=== PATIENT | male | born 1995 | race Caucasian/White ===

== ENCOUNTER 2018-05-30 15:43 | Outpatient (CLI) | payer OTHER ==
--- NOTE | 2018-05-31 08:50 | MRI ---
MRI OF THE LEFT HINDFOOT WITHOUT CONTRAST: Date: 05/30/18 INDICATION: Left ankle injury in January 2018 with persistent left ankle pain. COMPARISON: Left ankle radiograph dated 04/05/18. FINDINGS: The ATFL, PTFL, calcaneofibular, and syndesmotic ligaments are intact. The spring ligament appears in tact. No osteochondral lesion is seen involving the talar dome or tibial plafond. There is some mild nonspecific subchondral edema involving the medial malleolus. Sinus tarsi has a normal signal intensi ty. The Achilles tendon is normal appearing. There is some mild flattening and intermediate to high T 2 signal involving the peroneus brevis at the level of the lateral malleolus and lateral retinaculum with reconstitution slightly distal to the lateral retinaculum suspicious for a partial thickness spl it tear. There is mild peroneal tenosynovitis. The medial flexor tendons are normal appearing. Extens or tendons are normal appearing. The Lisfranc ligament is intact. No acute fracture is evident. Plant ar fascia is normal appearing. IMPRESSION: 1. Partial thickness split tear of the peroneus brevis and mild peroneal tenosynovitis. 2. Mild edema in the medial malleolus may reflect resolving contusion. 3. The intrinsic and extrinsic ligaments of the ankle appear intact. 4. No osteochondral lesion seen involving the talar dome. POS: [facility]
== END 2018-05-30 15:44 | disposition home or self-care (01) ==
LOC: SCSMRI 15:43
PROVIDERS: ATTEND Physician Assistant
DX: M25.572 Pain in left ankle and joints of left foot (principal); R60.0 Localized edema; S86.312A Strain of muscle(s) and tendon(s) of peroneal muscle group at lower leg level, left leg, initial encounter; M65.9 Synovitis and tenosynovitis, unspecified